=== PATIENT | female | born 1995 | race Caucasian/White ===

== ENCOUNTER → 2019-08-25 16:39 | Outpatient (CLI) | payer OTHER, SELFPAY ==
--- NOTE | ~2019-08-25 | XR_ITS ---
XR hip RT 2V w AP pelvis 08/25/2019 17:10 INDICATION: Right hip pain PROCEDURE: AP pelvis and 2 views right hip COMPARISON: No prior studies for comparison. FINDINGS: Fracture, dislocation or subluxation is not identified. Pelvic rings are intact. Sacral for amen are symmetric. There is an IUD in the pelvis. There are multiple radiodensities overlying the ab domen and pelvis, likely bowel content. Moderate colonic fecal loading. The soft tissues appear withi n normal limits. No foreign bodies are identified. IMPRESSION: 1: NO ACUTE BONE OR JOINT ABNORMALITY IDENTIFIED. Reviewed, dictated and finalized at location A. S OFFICE ADMINISTRATOR
--- NOTE | ~2019-08-25 | XR_ITS ---
XR lumbar spine 2-3V 08/25/2019 17:10 Indication: Low back pain Procedure: 3 views of the lumbar spine Comparison: No prior studies for comparison. Findings: Vertebral body and disc heights are preserved. No fracture, subluxation or dislocation. No evidence for spondylolisthesis. Pedicles intact. Sacral foramen are symmetric. Impression: 1: No significant abnormality of the lumbar spine. Reviewed, dictated and finalized at location A. YTICAL TECH Impression: 1: No significant abnormality of the lumbar spine.
== END ==
PROVIDERS: Visit Provider Chiropractor
DX: M25.551 Pain in right hip (principal); M54.5 Low back pain; M53.3 Sacrococcygeal disorders, not elsewhere classified
CPT/HCPCS: 72100; 73502; 73521